=== PATIENT | male | born 1960 | race Caucasian/White ===

== ENCOUNTER 2016-08-23 13:29 | Emergency (ER) | payer BC, OTHER ==
[~2016-08-23] VITALS: Ht 182.9 cm; Wt 54.4 kg
[2016-08-23] MEDS ORDERED: HYDROCODONE/APAP 5-325MG TABLET PO ONE ×2 (14:00→14:45)
[2016-08-23] MEDS ORDERED: HYDROCODONE/APAP 5-325MG TABLET ONE ×2 (14:17→14:57)
[2016-08-23] MEDS ORDERED: IBUPROFEN 800 MG TABLET PO ONE (14:45)
[2016-08-23 14:54] LABS: HEMOGLOBIN 14.2 g/dL (12.5-16.3); RED BLOOD CELL COUNT(AUTO) 4.68 MIL/uL (4.06-5.63); WHITE BLOOD COUNT (AUTO) 9.3 K/uL (3.6-10.2)
[2016-08-23 14:55] LABS: BASOPHILS # (AUTO) 0.2 K/uL (0.0-8.0); BASOPHILS % (AUTO) 1.8 % (0.0-2.0); EOSINOPHILS # (AUTO) 0.3 K/uL (0.0-0.7); EOSINOPHILS % (AUTO) 2.7 % (0.0-7.0); LYMPHOCYTES # (AUTO) 2.3 K/uL (20.0-40.0); LYMPHOCYTES % (AUTO) 24.6 % (20.5-51.5); MEAN CORPUSCULAR HEMOGLOBIN 30.2 uug (23.8-33.4); MEAN CORPUSCULAR HGB CONC 34 g/dL (32.5-36.3); MEAN CORPUSCULAR VOLUME 89.7 fL (73.0-96.2); MONOCYTES # (AUTO) 0.5 K/uL (2.0-10.0); MONOCYTES % (AUTO) 5.4 % (0.0-11.0); NEUTROPHILS % (AUTO) 65.5 % (38.5-71.5); PLATELET COUNT (AUTO) 152 K/uL (152-348); RED CELL DISTRIBUTION WIDTH 12.8 % (12.1-16.2)
[2016-08-23] MEDS ORDERED: IBUPROFEN 600 MG TABLET ONE (14:56)
[2016-08-23] MEDS ORDERED: IBUPROFEN 800 MG TABLET ONE (14:57)
[2016-08-23 15:04] LABS: BILIRUBIN,TOTAL 0.3 mg/dL (0.1-1.0); CALCIUM 9.2 mg/dL (8.5-10.1); CREATININE 1.2 mg/dL (0.6-1.3)
[2016-08-23 15:05] LABS: BILIRUBIN,DIRECT 0.1 mg/dL (0.0-0.2); TOTAL PROTEIN, SERUM 7.6 g/dL (6.4-8.2)
--- NOTE | 2016-08-23 15:25 | NUR ---
DR LOPEZ AT BEDSIDE MADE PATIENT AWARE OF TEST RESULTS.
--- NOTE | 2016-08-23 15:32 | NUR ---
Patient discharged to home in stable conditon. Written and verbal after care instructions given. Patient verbalizes understanding of instructions.
[2016-08-23 15:39] VITALS: BP 121/86
== END 2016-08-23 15:40 | disposition home or self-care (01) ==
LOC: ER 13:29
DX: J20.9 Acute bronchitis, unspecified (principal); R51 Headache; G89.4 Chronic pain syndrome; F31.9 Bipolar disorder, unspecified; F19.10 Other psychoactive substance abuse, uncomplicated; F17.200 Nicotine dependence, unspecified, uncomplicated; Z88.6 Allergy status to analgesic agent
CPT/HCPCS: 36415; 70030-TC; 71010; 73502; 83690; 85025; 85610; 87040; 93005; A4663

== ENCOUNTER 2017-04-21 17:08 | Emergency (ER) | payer OTHER ==
[~2017-04-21] VITALS: Ht 182.9 cm; Wt 83.9 kg
--- NOTE | 2017-04-21 17:29 | NUR ---
Pt is in the hallway with RA, there are no ER beds available.
[2017-04-21] MEDS: HYDROCODONE/APAP 10-325 MG TABLET PO ONE (18:50)
[2017-04-21] MEDS ORDERED: HYDROCODONE/APAP 10-325 MG TABLET ONE (19:06)
--- NOTE | 2017-04-21 19:30 | NUR ---
PT EVALUATED BY DR MENDIOLA. MEDICATED FOR PAIN AND RELEASED TO [facility] IN STABLE CONDITION.
[2017-04-21 19:31] VITALS: BP 142/74
== END 2017-04-21 19:35 ==
LOC: ER 17:08
DX: G89.4 Chronic pain syndrome (principal); F17.200 Nicotine dependence, unspecified, uncomplicated; G43.909 Migraine, unspecified, not intractable, without status migrainosus; Z88.6 Allergy status to analgesic agent
CPT/HCPCS: 99283; A4663